=== PATIENT | male | born 1985 | race Caucasian/White ===

== ENCOUNTER → 2017-10-31 | Outpatient (CLI) | payer BC ==
--- NOTE | 2017-10-31 10:49 | RADIOLOGY REPORT (SQ) ---
EXAM DESCRIPTION: MRI LT LOWER JOINT WITHOUT COMPLETED DATE/TIME: 10/31/2017 9:11 am REASON FOR STUDY: UNSPEC INTERNAL DERANGEMENT OF LEFT KNEE M23.92 UNSPECIFIED INTERNAL DERANGEMENT OF LEFT KNEE COMPARISON: None. TECHNIQUE: Leftknee images acquired and stored on PACS. Multiplanar images include fat sensitive se quences as T1, water sensitive sequences as FST2 or STIR, cartilage sensitive sequences as FSPD, and gradient echo sequences. LIMITATIONS: None. FINDINGS: JOINT AND BURSAE: Joint effusion. BONE CORTEX AND MARROW: No alteration of signal to suggest marrow replacement. No worrisome bone lesi ons. No occult fracture. ACL: Intact. No degeneration or ganglion cyst. PCL: Intact. MCL: Intact. No periligamentous edema or fluid. LCL: Intact. No periligamentous edema or fluid. MEDIAL MENISCUS: Very attenuated with remaining normal meniscal tissue confined to the anterior horn. Several posterior horn fragments. LATERAL MENISCUS: No tears. No abnormal signal. MEDIAL COMPARTMENT: Cartilage thinning. No bone bruises or reactive marrow edema. No osteophytes. LATERAL COMPARTMENT: Cartilage preserved. No bone bruises or reactive marrow edema. No osteophytes. PATELLA: No chondromalacia. No subchondral cysts. Medial and lateral retinacula intact. EXTENSOR MECHANISM: Intact. Quadriceps and patella tendons normal. SOFT TISSUES: Gandara's cyst measuring about 4 cm in maximum craniocaudal diameter. Fluid extends into the superficial fascia. OTHER: No other significant finding. IMPRESSION: 1. Complex tear posterior horn medial meniscus extending into the body. Posterior horn is fragmented . 2. Ruptured Gandara's cyst. 3. Joint effusion. TECHNICAL DOCUMENTATION: JOB ID: [id number]- All Rights Reserved
== END ==
LOC: RAD 07:56
PROVIDERS: ATTEND Family Medicine
DX: M23.92 Unspecified internal derangement of left knee (principal); M66.0 Rupture of popliteal cyst

== ENCOUNTER 2017-12-07 07:23 | Day surgery (SDC) | payer BC ==
[2017-11-10 09:08] LABS: ABSOLUTE BASOPHILS # (AUTO) 0.1 10^3/uL (0.0-0.2); ABSOLUTE EOSINOPHILS # (AUTO) 0.1 10^3/uL (0.0-0.6); ABSOLUTE LYMPHOCYTES (AUTO) 3.8 10^3/uL (0.5-4.7); ABSOLUTE MONOCYTES (AUTO) 0.8 10^3/uL (0.1-1.4); ABSOLUTE NEUT (AUTO) 3.7 10^3/uL (1.7-8.2); BASOPHILS % (AUTO) 0.7 % (0-2); EOSINOPHILS % (AUTO) 1.4 % (0-6); HEMOGLOBIN 16.1 g/dL (13.5-17.0); LYMPHOCYTES % (AUTO) 44.7 % (13-45); MEAN CORPUSCULAR HEMOGLOBIN 30.5 pg (27.0-33.4); MEAN CORPUSCULAR HGB CONC 34.3 g/dL (32.0-36.0); MEAN CORPUSCULAR VOLUME 89 fl (80-97); PLATELET COUNT 296 10^3/uL (150-450); RED BLOOD COUNT 5.27 10^6/uL (4.35-5.55); RED CELL DISTRIBUTION WIDTH 12.8 % (11.5-14.0); SEGMENTED NEUTROPHILS % (AUTO) 44.2 % (42-78); TOTAL CELLS COUNTED % (AUTO) 100 %; WHITE BLOOD COUNT 8.4 10^3/uL (4.0-10.5)
[2017-11-10 09:32] LABS: ANION GAP 14 (5-19); BLOOD UREA NITROGEN 10 mg/dL (7-20); CARBON DIOXIDE 26 mmol/L (22-30); CHLORIDE 103 mmol/L (98-107); GLUCOSE 100 mg/dL (75-110); POTASSIUM 4.2 mmol/L (3.6-5.0); SODIUM 143.1 mmol/L (137-145)
--- NOTE | 2017-11-10 10:54 | RADIOLOGY REPORT (SQ) ---
EXAM DESCRIPTION: CHEST PA/LATERAL COMPLETED DATE/TIME: 11/10/2017 8:56 am REASON FOR STUDY: PRE-OP COMPARISON: None. EXAM PARAMETERS: NUMBER OF VIEWS: two views TECHNIQUE: Digital Frontal and Lateral radiographic views of the chest acquired. RADIATION DOSE: NA LIMITATIONS: none FINDINGS: LUNGS AND PLEURA: No opacities, masses or pneumothorax. No pleural effusion. MEDIASTINUM AND HILAR STRUCTURES: No masses or contour abnormalities. HEART AND VASCULAR STRUCTURES: Heart normal size. No evidence for failure. BONES: No acute findings. HARDWARE: None in the chest. OTHER: No other significant finding. IMPRESSION: NO SIGNIFICANT RADIOGRAPHIC FINDING IN THE CHEST. TECHNICAL DOCUMENTATION: JOB ID: [id number] [employer]- All Rights Reserved
--- NOTE | 2017-11-12 12:42 | EKG REPORT ---
SEVERITY:- NORMAL ECG - SINUS RHYTHM : Confirmed by: Taylor Everett MD 12-Nov-2017 12:40:38
[~2017-12-07 07:23] MED LIST: CEFAZOLIN 2 GM/D5W RTU 2 GM/50 ML RTUPB IV PRN
[2017-12-07] MEDS ORDERED: EPHEDRINE SULFATE INJ 50 MG/1 ML AMPULE ONE (08:33)
[2017-12-07] MEDS ORDERED: HYDROMORPHONE HCL INJ/PF 2 MG/ML AMPULE ONE (08:33)
[2017-12-07] MEDS ORDERED: MIDAZOLAM 2 MG/2 ML INJ ONE (08:33)
[2017-12-07] MEDS ORDERED: PROPOFOL INJ 200 MG/20 ML VIAL IV ONE (08:34)
[2017-12-07] MEDS ORDERED: ONDANSETRON HCL INJ/PF 4 MG/2 ML SDV ONE (08:34)
[2017-12-07] MEDS ORDERED: DIPHENHYDRAMINE HCL 50 MG/ML VIAL IV PRN (09:57)
[2017-12-07] MEDS ORDERED: MEPERIDINE HCL/PF INJ 25 MG/1 ML DISP.SYRIN IV PRN (09:57)
[2017-12-07] MEDS ORDERED: PROMETHAZINE HCL INJ 25 MG/1 ML VIAL IV PRN (09:57)
[2017-12-07] MEDS ORDERED: FENTANYL CITRATE INJ/PF 100 MCG/2 ML AMPUL IV PRN ×3 (09:57)
[2017-12-07] MEDS ORDERED: BUPIVACAINE HCL 0.5 % INJ/PF 30 ML SDV ONE (10:30)
[2017-12-07] MEDS ORDERED: LORAZEPAM INJ 2 MG/1 ML VIAL ONE (11:02)
--- NOTE | 2017-12-07 11:05 | PDOC DISCHARGE SUMMARY ---
Discharge Summary (SDC) - Discharge Final Diagnosis: Left knee bucket-handle medial meniscus tear Date of Surgery: 12/07/17 Discharge Date: 12/07/17 Condition: Good Treatment or Instructions: Patient instructed to follow up in 10-14 days. Patient instructed to keep dressing dry clean and intact for 4 days and then allowed to remove. At that point patient can shower and apply Band-Aids as needed. Patient can weight-bear as tolerated and do range of motion exercises as tolerated. Crutches for support and safety. Can wean crutches once stable on his feet. Patient instructed to call the office if patient develops fevers chills redness and drainage from the surgical sites. Prescriptions: Oxycodone HCl/Acetaminophen [Percocet 5-325 mg Tablet] 1 - 2 tab PO ASDIR PRN # 25 tablet PRN Reason: Referrals: DAY FENTON PA-C [Primary Care Provider] - Discharge Diet: As Tolerated Respiratory Treatments at Home: Deep Breathing/Coughing Discharge Activity: No Lifting/Push/Pulling, Slowly Increase Activity, Walk Frequently Home Care Assistance: None Needed Adaptive Devices on Discharge: Axillary Crutches Report the Following to Your Physician Immediately: Shortness of Breath, Vomiting, Fever over 101 Degrees, Unusual Bleeding, Redness, Swelling, Warmth, Increased Soreness, Drainage-Yellow, Drainage-Pate, Drainage-Green, Drainage- Foul Smelling
--- NOTE | 2017-12-07 11:10 | Operative Report ---
Operative Report DATE OF SURGERY: 12/07/17 PREOPERATIVE DIAGNOSIS: Bucket-handle medial meniscus tear of the left knee POSTOPERATIVE DIAGNOSIS: Same OPERATION: Left knee arthroscopy with partial medial meniscectomy SURGEON: AFSANEH CA ANESTHESIA: GA TISSUE REMOVED OR ALTERED: Medial meniscus COMPLICATIONS: None ESTIMATED BLOOD LOSS: Less than 10 mL INTRAOPERATIVE FINDINGS: As above PROCEDURE: Patient was brought to the operating room and induced and intubated in supine position. A tourniquet was applied to the left lower extremity. Timeout was done identifying the left knee was the correct site. .25% plain Marcaine was injected into anticipated portal sites. The extremity was elevated and the tourniquet was inflated at 300 mmHg. 11 blade was used to establish the anterolateral portal. Scope was introduced. At this point I established my anteromedial portal. Diagnostic scope was done showing the patient had pristine patellofemoral compartment with no evidence of chondromalacia. I turned my attention to the medial compartment where I noted a lift bucket- handle tear medial meniscus.I used the meniscal biter and 4.0mm shaver to to cut the anterior portion and the posterior portion being up the bucket-handle piece of the medial meniscus. Hemostat was used to pull out the fragment. Pictures were taken showing the fragment. Shaver smooth out the edges of the meniscus which gave a good stable construct. I this point redirected my camera to the notch and visualized the anterior cruciate ligament graft which was intact as well as the PCL which showed to be intact. I then placed the extremity in a [id number] and at this point saw the lateral meniscus was intact with no noticeable tears. Popliteal hiatus was intact. Articular cartilage also was pristine with no evidence of chondromalacia or wear. At this point the fluid of the knee was removed and I proceeded to close the 2 portal sites with 3-0 nylon. Tourniquet was let down. The portal sites were covered with Xeroform 4 x 4 dressing and ABD pad followed by a soft roll. I overwrapped it with an Facundo bandage. Drapes were cut and removed. Patient was successfully extubated and sent to PACU in stable condition.
[2017-12-07] MEDS ORDERED: KETOROLAC TROMETHAMINE INJ/PF 30 MG/1 ML SDV ONE (11:13)
[2017-12-07] MEDS ORDERED: ACETAMINOPHEN 100 ML IV ONE (11:13)
[2017-12-07] MEDS ORDERED: FENTANYL CITRATE INJ/PF 100 MCG/2 ML AMPUL ONE (11:20)
[2017-12-07] MEDS ORDERED: OXYCODONE-ACETAMINOPHEN 5-325 MG TABLET PO PRN ×2 (12:45)
[2017-12-07] MEDS ORDERED: OXYCODONE-ACETAMINOPHEN 5-325 MG TABLET ONE (12:48)
[2017-12-07 14:42] VITALS: BP 137/86
== END 2017-12-07 13:50 | disposition home or self-care (01) ==
LOC: OROUT 07:23
PROVIDERS: ATTEND Orthopaedic Surgery
PROC: 0SBD4ZZ Excision of Left Knee Joint, Percutaneous Endoscopic Approach (ICD-10-PCS; principal; 2017-12-07 09:30)
DX: S83.212D Bucket-handle tear of medial meniscus, current injury, left knee, subsequent encounter (principal); X58.XXXD Exposure to other specified factors, subsequent encounter; F17.210 Nicotine dependence, cigarettes, uncomplicated; K21.9 Gastro-esophageal reflux disease without esophagitis
CPT/HCPCS: 93005; 36415; 85025; 80048; 71020; 93010; 29881; J2250; J3490; J3010; J1885; J1170; J2060; J2405; J2704; J0690; J0131; 1400

== ENCOUNTER → 2018-03-21 | Outpatient (CLI) | payer BC ==
--- NOTE | 2018-03-21 10:55 | RADIOLOGY REPORT (SQ) ---
EXAM DESCRIPTION: MRI RT LOWER JOINT WITHOUT COMPLETED DATE/TIME: 03/21/2018 9:11 am REASON FOR STUDY: SPONTANEOUS RUPTURE OF OTHER TENDONS (M66.869) M66.869 SPONTANEOUS RUPTURE OF OTH ER TENDONS, UNSPECIFIED LO COMPARISON: None. TECHNIQUE: Right ankle images acquired and stored on PACS. Multiplanar images include fat sensitive sequences as T1, fluid sensitive sequences as FST2/STIR, cartilage sensitive sequences as FSPD, and g radient echo sequences. LIMITATIONS: None. FINDINGS: BONE MARROW: No alteration of signal to suggest marrow replacement or edema. No occult fra cture. No large osteophytes. EFFUSIONS: No subtalar or tibiotalar effusions. No loose bodies. OSSEOUS ARTICULATIONS: Normal tibiotalar, subtalar, talonavicular and calcaneocuboid joints. TALAR DOME AND TIBIAL PLAFOND: Normal cartilage. No osteochondral defect. ACHILLES TENDON: Complete rupture about 5 cm proximal to the insertion with a gap of 5-6 cm. TIBIALIS ANTERIOR TENDON: Intact without edema at the 1st MT attachment. TIBIALIS POSTERIOR TENDON: Small amount of tendon sheath fluid which can be a normal variant. FLEXOR HALLUCIS LONGUS AND FLEXOR DIGITORUM TENDONS: Normal morphology and no tendon sheath fluid. No edema of the os trigonum. PERONEUS LONGUS AND BREVIS TENDON: Normal morphology and no tendon sheath fluid. No subluxation. ATFL, CFL, PTFL: Intact. No thickening or signal alteration. No corin-ligamentous fluid. DELTOID LIGAMENT: Visualized components intact. TARSAL TUNNEL: No masses. No muscle atrophy. SINUS TARSI: No fluid. No reactive marrow edema or erosions. PLANTAR FASCIA: No signal alteration or tear. ADJACENT SOFT TISSUES: No masses. OTHER: No other significant finding. IMPRESSION: Complete rupture of the Achilles tendon with a gap of approximately 6 cm. TECHNICAL DOCUMENTATION: JOB ID: [id number] [employer]- All Rights Reserved Reading location - IP/workstation name: [email or web address]
== END ==
LOC: RAD 08:27
PROVIDERS: ATTEND Orthopaedic Surgery
DX: M66.869 Spontaneous rupture of other tendons, unspecified lower leg (principal)

== ENCOUNTER → 2018-03-29 | Outpatient (CLI) | payer BC ==
[2018-03-29 11:56] LABS: HEMATOCRIT 45.7 % (37.9-51.0); HEMOGLOBIN 15.7 g/dL (13.5-17.0); MEAN CORPUSCULAR HEMOGLOBIN 30.9 pg (27.0-33.4); MEAN CORPUSCULAR HGB CONC 34.5 g/dL (32.0-36.0); MEAN CORPUSCULAR VOLUME 90 fl (80-97); PLATELET COUNT 247 10^3/uL (150-450); RED BLOOD COUNT 5.08 10^6/uL (4.35-5.55); RED CELL DISTRIBUTION WIDTH 12.7 % (11.5-14.0); WHITE BLOOD COUNT 5.9 10^3/uL (4.0-10.5)
[2018-03-29 12:18] LABS: ANION GAP 12 (5-19); BLOOD UREA NITROGEN 16 mg/dL (7-20); CALCIUM 10.1 mg/dL (8.4-10.2); CARBON DIOXIDE 27 mmol/L (22-30); CHLORIDE 104 mmol/L (98-107); GLUCOSE 108 mg/dL (75-110); POTASSIUM 4.1 mmol/L (3.6-5.0); SODIUM 142.8 mmol/L (137-145)
--- NOTE | 2018-03-29 19:27 | EKG REPORT ---
SEVERITY:- NORMAL ECG - SINUS RHYTHM : Confirmed by: Jared Arguello 29-Mar-2018 19:26:32
== END ==
LOC: OD 10:59
PROVIDERS: ATTEND Orthopaedic Surgery
DX: Z01.810 Encounter for preprocedural cardiovascular examination (principal); Z01.812 Encounter for preprocedural laboratory examination; Z01.89 Encounter for other specified special examinations
CPT/HCPCS: 36415; 80048; 85027; 93005; 93010

== ENCOUNTER 2018-12-03 10:17 | Emergency (ER) | payer BC ==
[2018-12-03] MEDS ORDERED: NORMAL SALINE 1000 ML 1,000 ML IV ONE (10:35)
[2018-12-03] MEDS ORDERED: HALOPERIDOL LACTATE INJ 5 MG/1 ML VIAL IV ONE (10:36)
[2018-12-03] MEDS ORDERED: DIPHENHYDRAMINE HCL 50 MG/ML VIAL IV ONE (10:36)
--- NOTE | 2018-12-03 10:38 | ER Document Report ---
ED Medical Screen (RME) - General Chief Complaint: Vomiting Stated Complaint: DEHYDRATION Time Seen by Provider: 12/03/18 10:29 Primary Care Provider: AFSANEH JEFFERY MD [Primary Care Provider] - Follow up as needed Mode of Arrival: Ambulatory Information source: Patient Notes: This is a 33-year-old man with a history of anxiety, migraine headaches, severe episodes of vomiting. Patient states he started getting nauseated while eating [employer] on Monday and started vomiting shortly thereafter. He did go to the ER in [place] and was treated with IV fluids, antiemetics and released. He presents with continued symptoms. Patient is also concerned that he might have a bite to the dorsal aspect of the left hand over the fifth metacarpal. He does have mild erythema with a central scab. There is no fluctuance or drainage. There is minimal surrounding erythema. TRAVEL OUTSIDE OF THE [place] IN LAST 30 DAYS: No - Related Data Allergies/Adverse Reactions: No Known Allergies Allergy (Verified 12/03/18 10:20) Past Medical History - Social History Chew tobacco use (# tins/day): No Frequency of alcohol use: None Drug Abuse: None - Past Medical History Cardiac Medical History: Denies: Hx Coronary Artery Disease, Hx Heart Attack, Hx Hypertension Pulmonary Medical History: Denies: Hx Asthma, Hx Bronchitis, Hx COPD, Hx Pneumonia Neurological Medical History: Denies: Hx Cerebrovascular Accident, Hx Seizures Renal/ Medical History: Denies: Hx Peritoneal Dialysis Musculoskeltal Medical History: Denies Hx Arthritis Past Surgical History: Reports: Hx Cholecystectomy, Hx Orthopedic Surgery - meniscus to the left knee, right achilles - Immunizations Hx Diphtheria, Pertussis, Tetanus Vaccination: Yes History of Influenza Vaccine for 08/2017 - 01/2018 Season: No Physical Exam - Vital signs Vitals: Temp Pulse Resp BP Pulse Ox 98.8 F 91 14 125/81 98 12/03/18 10:12/03/18 10:12/03/18 10:12/03/18 10:12/03/18 10:26 Course - Vital Signs Vital signs: Temp Pulse Resp BP Pulse Ox 98.8 F 91 14 125/81 98 12/03/18 10:12/03/18 10:12/03/18 10:12/03/18 10:12/03/18 10:26 Doctor's Discharge - Discharge Referrals: AFSANEH JEFFERY MD [Primary Care Provider] - Follow up as needed
[2018-12-03 10:43] LABS: ABSOLUTE LYMPHOCYTES (AUTO) 2.5 10^3/uL (0.5-4.7); ABSOLUTE MONOCYTES (AUTO) 0.6 10^3/uL (0.1-1.4); ABSOLUTE NEUT (AUTO) 6.4 10^3/uL (1.7-8.2); BASOPHILS % (AUTO) 0.4 % (0-2); EOSINOPHILS % (AUTO) 0.1 % (0-6); HEMATOCRIT 48.3 % (37.9-51.0); HEMOGLOBIN 16.9 g/dL (13.5-17.0); LYMPHOCYTES % (AUTO) 25.9 % (13-45); MEAN CORPUSCULAR HEMOGLOBIN 30.8 pg (27.0-33.4); MEAN CORPUSCULAR HGB CONC 34.9 g/dL (32.0-36.0); MEAN CORPUSCULAR VOLUME 88 fl (80-97); MONOCYTES % (AUTO) 6.4 % (3-13); PLATELET COUNT 307 10^3/uL (150-450); RED BLOOD COUNT 5.48 10^6/uL (4.35-5.55); RED CELL DISTRIBUTION WIDTH 12.6 % (11.5-14.0); SEGMENTED NEUTROPHILS % (AUTO) 67.2 % (42-78); TOTAL CELLS COUNTED % (AUTO) 100 %; WHITE BLOOD COUNT 9.6 10^3/uL (4.0-10.5)
[2018-12-03 11:02] LABS: ALANINE AMINOTRANSFERASE 159 U/L (21-72); ALBUMIN 5.6 g/dL (3.5-5.0); ALKALINE PHOSPHATASE 88 U/L (38-126); ANION GAP 19 (5-19); ASPARTATE AMINO TRANSFERASE 109 U/L (17-59); BILIRUBIN,DIRECT 0.6 mg/dL (0.0-0.4); BLOOD UREA NITROGEN 13 mg/dL (7-20); CALCIUM 10.7 mg/dL (8.4-10.2); CARBON DIOXIDE 34 mmol/L (22-30); CHLORIDE 86 mmol/L (98-107); GLUCOSE 159 mg/dL (75-110); LIPASE 183.9 U/L (23-300); POTASSIUM 3.6 mmol/L (3.6-5.0); SODIUM 138.5 mmol/L (137-145); TOTAL PROTEIN 8.7 g/dL (6.3-8.2)
--- NOTE | 2018-12-03 12:55 | ER Document Report ---
ED General - General Chief Complaint: Vomiting Stated Complaint: DEHYDRATION Time Seen by Provider: 12/03/18 10:29 Primary Care Provider: AFSANEH JEFFERY MD [Primary Care Provider] - Follow up as needed Mode of Arrival: Ambulatory Information source: Patient Notes: 33-year-old male presents emergency department for complaints of dehydration, nausea, vomiting. Patient states that he has had nausea and vomiting for the last 3 days. Patient states that it started after eating at [facility]. He went to the emergency department at [facility] and was treated with IV fluids, antiemetics and was discharged home. Patient states that he is continuing to have symptoms. He did not feel the antiemetics that he was prescribed. Patient states that initially he was having left lower quadrant pain but this pain has completely resolved. He denies any fever, chills, dysuria, hematuria, hematemesis, hematochezia, melena, penile discharge, testicular pain. TRAVEL OUTSIDE OF THE [place] IN LAST 30 DAYS: No - HPI Onset: Other - 3 days Onset/Duration: Sudden Quality of pain: Achy Severity: None Pain Level: Denies Associated symptoms: Nausea, Vomiting Exacerbated by: Denies Relieved by: Denies Similar symptoms previously: Yes Recently seen / treated by doctor: Yes - Related Data Allergies/Adverse Reactions: No Known Allergies Allergy (Verified 12/03/18 10:20) Past Medical History - General Information source: Patient - Social History Smoking Status: Current Every Day Smoker Chew tobacco use (# tins/day): No Frequency of alcohol use: None Drug Abuse: None Family History: Reviewed & Not Pertinent Patient has suicidal ideation: No Patient has homicidal ideation: No - Past Medical History Cardiac Medical History: Denies: Hx Coronary Artery Disease, Hx Heart Attack, Hx Hypertension Pulmonary Medical History: Denies: Hx Asthma, Hx Bronchitis, Hx COPD, Hx Pneumonia Neurological Medical History: Denies: Hx Cerebrovascular Accident, Hx Seizures Renal/ Medical History: Denies: Hx Peritoneal Dialysis Musculoskeletal Medical History: Denies Hx Arthritis Past Surgical History: Reports: Hx Cholecystectomy, Hx Orthopedic Surgery - meniscus to the left knee, right achilles - Immunizations Hx Diphtheria, Pertussis, Tetanus Vaccination: Yes Review of Systems - Review of Systems Constitutional: No symptoms reported EENT: No symptoms reported Cardiovascular: No symptoms reported Respiratory: No symptoms reported Gastrointestinal: Abdominal pain, Nausea, Vomiting Genitourinary: No symptoms reported Male Genitourinary: No symptoms reported Musculoskeletal: No symptoms reported Skin: No symptoms reported Hematologic/Lymphatic: No symptoms reported Neurological/Psychological: No symptoms reported -: Yes All other systems reviewed and negative Physical Exam - Vital signs Vitals: Temp Pulse Resp BP Pulse Ox 98.8 F 91 14 125/81 98 12/03/18 10:26 12/03/18 10:12/03/18 10:12/03/18 10:12/03/18 10:26 - Notes Notes: PHYSICAL EXAMINATION: GENERAL: Well-appearing, well-nourished and in no acute distress. HEAD: Atraumatic, normocephalic. EYES: Pupils equal round and reactive to light, extraocular movements intact, sclera anicteric, conjunctiva are normal. ENT: Nares patent, oropharynx clear without exudates. Moist mucous membranes. NECK: Normal range of motion, supple without lymphadenopathy LUNGS: Breath sounds clear to auscultation bilaterally and equal. No wheezes rales or rhonchi. HEART: Regular rate and rhythm without murmurs ABDOMEN: Soft, nontender, nondistended abdomen. No guarding, no rebound. No masses appreciated. Musculoskeletal: Normal range of motion, no pitting or edema. No cyanosis. NEUROLOGICAL: Cranial nerves grossly intact. Normal speech, normal gait. Normal sensory, motor exams PSYCH: Normal mood, normal affect. SKIN: Warm, Dry, normal turgor, no rashes or lesions noted. Course - Re-evaluation Re-evalutation: 12/03/18 12:53 On evaluation, patient denies any abdominal pain. He was given IV fluids, Haldol, Benadryl by the triage physician. Patient states that his symptoms have improved and he is ready for discharge home. Lbs remarkable for elevated liver enzymes. Patient says he had his gallbladder removed years ago. Denies any RUQ or RLQ pain. Denies ETOH. I instructed the patient to take the medication prescribed as directed, to follow-up with his primary care physician this week, and to return to the emergency department for any worsening symptoms. Patient is agreeable with plan of care. 12/03/18 12:55 - Vital Signs Vital signs: Temp Pulse Resp BP Pulse Ox 98.8 F 91 14 125/81 98 12/03/18 10:12/03/18 10:26 12/03/18 10:26 12/03/18 10:26 12/03/18 10:26 - Laboratory Result Diagrams: 12/03/18 09:55 12/03/18 09:55 Laboratory results interpreted by me: 12/03/18 09:55 Chloride 86 L Carbon Dioxide 34 H Glucose 159 H Calcium 10.7 H Total Bilirubin 3.0 H Direct Bilirubin 0.6 H AST 109 H ALT 159 H Total Protein 8.7 H Albumin 5.6 H Discharge - Discharge Clinical Impression: Nausea & vomiting Qualifiers: Vomiting type: unspecified Vomiting Intractability: non-intractable Qualified Code(s): R11.2 - Nausea with vomiting, unspecified Condition: Good Disposition: HOME, SELF-CARE Instructions: Vomiting ([facility]) Additional Instructions: Take the medication prescribed to you by the emergency department at [facility] as directed, follow-up with your primary care physician this week, return to emergency department for any worsening symptoms. Referrals: AFSANEH JEFFERY MD [Primary Care Provider] - Follow up as needed
[2018-12-03 13:18] VITALS: BP 136/92
== END 2018-12-03 13:18 | disposition home or self-care (01) ==
LOC: ER 10:17
DX: R11.2 Nausea with vomiting, unspecified (principal); R10.32 Left lower quadrant pain
CPT/HCPCS: 99284; 96361; 96374; 96375; 36415; 83690; 85025; 80053; J1200; J1630; J7030

== ENCOUNTER 2019-06-20 04:43 | Emergency (ER) | payer BC ==
[2019-06-20] MEDS ORDERED: NORMAL SALINE 1000 ML 1,000 ML IV ONE ×3 (04:56→12:04)
[2019-06-20] MEDS ORDERED: CLONIDINE HCL 0.1 MG TABLET PO ONE (04:56)
[2019-06-20] MEDS ORDERED: ONDANSETRON HCL INJ/PF 4 MG/2 ML SDV IV ONE (04:56)
[2019-06-20 05:13] LABS: ABSOLUTE LYMPHOCYTES (AUTO) 2.6 10^3/uL (0.5-4.7); ABSOLUTE MONOCYTES (AUTO) 1.1 10^3/uL (0.1-1.4); ABSOLUTE NEUT (AUTO) 10.2 10^3/uL (1.7-8.2); BASOPHILS % (AUTO) 0.3 % (0-2); HEMATOCRIT 47.8 % (37.9-51.0); HEMOGLOBIN 16.5 g/dL (13.5-17.0); LYMPHOCYTES % (AUTO) 18.3 % (13-45); MEAN CORPUSCULAR HEMOGLOBIN 30.5 pg (27.0-33.4); MEAN CORPUSCULAR HGB CONC 34.5 g/dL (32.0-36.0); MEAN CORPUSCULAR VOLUME 88 fl (80-97); MONOCYTES % (AUTO) 8.1 % (3-13); PLATELET COUNT 270 10^3/uL (150-450); RED BLOOD COUNT 5.41 10^6/uL (4.35-5.55); RED CELL DISTRIBUTION WIDTH 12.7 % (11.5-14.0); SEGMENTED NEUTROPHILS % (AUTO) 73.3 % (42-78); TOTAL CELLS COUNTED % (AUTO) 100 %
[2019-06-20 05:31] LABS: ALBUMIN 5.1 g/dL (3.5-5.0); ALKALINE PHOSPHATASE 69 U/L (38-126); ANION GAP 15 (5-19); ASPARTATE AMINO TRANSFERASE 138 U/L (17-59); BILIRUBIN,DIRECT 0.2 mg/dL (0.0-0.4); BILIRUBIN,TOTAL 2.7 mg/dL (0.2-1.3); BLOOD UREA NITROGEN 15 mg/dL (7-20); CARBON DIOXIDE 33 mmol/L (22-30); CHLORIDE 89 mmol/L (98-107); GLUCOSE 139 mg/dL (75-110); TOTAL PROTEIN 7.9 g/dL (6.3-8.2)
[2019-06-20 05:32] LABS: ACETAMINOPHEN < 10 ug/mL (10-30); ALCOHOL < 10 mg/dL (NONE DETECTED); SALICYLATE < 1.0 mg/dL (2.0-20.0)
[2019-06-20 05:40] LABS: CREATINE KINASE 2619 U/L (55-170)
[2019-06-20 05:41] LABS: POTASSIUM 2.8 mmol/L (3.6-5.0)
[2019-06-20] MEDS ORDERED: POTASSIUM CHLORIDE 20 MEQ PACKET PO ONE (05:43)
[2019-06-20] MEDS: RINGERS SOLUTION,LACTATED 1,000 ML IV PRN ×2 (06:08→06:46)
[2019-06-20 06:24] LABS: APPEARANCE,URINE CLEAR; BILIRUBIN,URINE NEGATIVE (NEGATIVE); COLOR,URINE STRAW; GLUCOSE, URINE NEGATIVE (NEGATIVE); KETONES,URINE NEGATIVE (NEGATIVE); LEUKOCYTE ESTERASE,URINE NEGATIVE (NEGATIVE); NITRITE,URINE NEGATIVE (NEGATIVE); PROTEIN,URINE NEGATIVE (NEGATIVE); URINE SPECIFIC GRAVITY 1.003; UROBILINOGEN,URINE NEGATIVE mg/dL (<2.0)
[2019-06-20 06:38] LABS: URINE AMPHETAMINES SCREEN NEGATIVE; URINE BARBITURATES SCREEN NEGATIVE; URINE BENZODIAZEPINES SCREEN NEGATIVE; URINE COCAINE SCREEN NEGATIVE; URINE MARIJUANA (THC) SCREEN UNCONFIRMED POSITIVE; URINE METHADONE SCREEN NEGATIVE; URINE PHENCYCLIDINE SCREEN NEGATIVE
--- NOTE | 2019-06-20 07:00 | ER Document Report ---
Addendum entered and electronically signed by ARGENIS KAISER NP 06/20/19 15:54: Course - Re-evaluation Re-evalutation: 06/20/19 13:52 Dr. Church is near the end of his shift and request that care be transferred to this provider to follow his trending repeat CK test results. Dr. Church states that patient has already been evaluated by the mental health team and will receive a prescription for BuSpar 5 mg daily, also states that patient can receive an additional 40 mEq of p.o. potassium prior to discharge. States that if repeat CK continues to increase or be elevated recommends consultation with hospitalist for admission. If CK is downtrending, patient may be discharged. 06/20/19 15:54 Patient updated regarding repeat laboratory test results. Patient encouraged to increase oral potassium at home. Patient is anxious pacing at bedside requesting to be discharged. Family member at bedside there with patient. Patient verbalized understanding of discharge and plan of care with instructions to return in 24 hours for repeat examination. - Vital Signs Vital signs: Temp Pulse Resp BP Pulse Ox 98.5 F 100 22 H 135/86 H 100 06/20/19 04:46 06/20/19 04:46 06/20/19 07:01 06/20/19 07:01 06/20/19 07:01 - Laboratory Result Diagrams: 06/20/19 05:00 06/20/19 05:00 Laboratory results interpreted by me: 06/20/19 06/20/19 06/20/19 05:00 05:00 10:30 WBC 14.0 H Absolute Neutrophils 10.2 H Sodium 136.5 L Potassium 2.8 L* Chloride 89 L Carbon Dioxide 33 H Glucose 139 H Total Bilirubin 2.7 H AST 138 H Creatine Kinase 2619 H 2855 H Albumin 5.1 H Salicylates < 1.0 L Acetaminophen < 10 L Addendum entered and electronically signed by ARGENIS KAISER NP 06/20/19 15:47: Discharge - Discharge Clinical Impression: Opiate withdrawal, Multiple substance abuse, Hypokalemia Nausea and vomiting Qualifiers: Vomiting type: unspecified Vomiting Intractability: non-intractable Qualified Code(s): R11.2 - Nausea with vomiting, unspecified Rhabdomyolysis Qualifiers: Rhabdomyolysis type: non-traumatic Qualified Code(s): M62.82 - Rhabdomyolysis Cyclic vomiting syndrome Qualifiers: Vomiting Intractability: non-intractable Nausea presence: with nausea Qualified Code(s): G43.A0 - Cyclical vomiting, not intractable Disposition: PSYCH HOSP/UNIT Additional Instructions: You have elevated creatinine phosphokinase. This is due to muscle breakdown. You need to drink lots of fluids. You need to have your creatinine phosphokinase rechecked as soon as possible. Please return here within the next 24 hours to have a repeat creatinine phosphokinase. You can have permanent kidney damage or kidney failure if you do not have the elevated creatinine phosphokinase treated. Prescriptions: Buspirone HCl [Buspar 5 mg Tablet] 1 tab PO DAILY #15 tab Referrals: AFSANEH JEFFERY MD [ACTIVE STAFF] - Follow up as needed Scribe Attestation: 06/20/19 05:19 I personally performed the services described in the documentation, reviewed and edited the documentation which was dictated to the scribe in my presence, and it accurately records my words and actions. Addendum entered and electronically signed by KELLY CHURCH MD 06/20/19 14:35: Discharge - Discharge Clinical Impression: Opiate withdrawal, Multiple substance abuse, Hypokalemia Nausea and vomiting Qualifiers: Vomiting type: unspecified Vomiting Intractability: non-intractable Qualified Code(s): R11.2 - Nausea with vomiting, unspecified Rhabdomyolysis Qualifiers: Rhabdomyolysis type: non-traumatic Qualified Code(s): M62.82 - Rhabdomyolysis Cyclic vomiting syndrome Qualifiers: Vomiting Intractability: non-intractable Nausea presence: with nausea Qualified Code(s): G43.A0 - Cyclical vomiting, not intractable Disposition: PSYCH HOSP/UNIT Additional Instructions: You have elevated creatinine phosphokinase. This is due to muscle breakdown. You need to drink lots of fluids. You need to have your creatinine phosphokinase rechecked as soon as possible. Please return here within the next 24 hours to have a repeat creatinine phosphokinase. You can have permanent kidney damage or kidney failure if you do not have the elevated creatinine phosphokinase treated. Prescriptions: Buspirone HCl [Buspar 5 mg Tablet] 1 tab PO DAILY #15 tab Referrals: AFSANEH JEFFERY MD [ACTIVE STAFF] - Follow up as needed Scribe Attestation: 06/20/19 05:19 I personally performed the services described in the documentation, reviewed and edited the documentation which was dictated to the scribe in my presence, and it accurately records my words and actions. Addendum entered and electronically signed by KELLY CHURCH MD 06/20/19 08:32: Course - Re-evaluation Re-evalutation: 06/20/19 08:31 Patient was about the sign AMA when psychiatry arrived. Psychiatry did go speak with the patient. At this time patient is decided not to leave AMA. He states he will remain here as a patient and receive IV fluids. In addition patient will have a psychiatry consult and possible placement will be pursued. - Vital Signs Vital signs: Temp Pulse Resp BP Pulse Ox 98.5 F 100 22 H 135/86 H 100 06/20/19 04:46 06/20/19 04:46 06/20/19 07:01 06/20/19 07:01 06/20/19 07:01 - Laboratory Result Diagrams: 06/20/19 05:00 06/20/19 05:00 Laboratory results interpreted by me: 06/20/19 06/20/19 05:00 05:00 WBC 14.0 H Absolute Neutrophils 10.2 H Sodium 136.5 L Potassium 2.8 L* Chloride 89 L Carbon Dioxide 33 H Glucose 139 H Total Bilirubin 2.7 H AST 138 H Creatine Kinase 2619 H Albumin 5.1 H Salicylates < 1.0 L Acetaminophen < 10 L Addendum entered and electronically signed by KELLY CHURCH MD 06/20/19 08:31: Discharge - Discharge Clinical Impression: Opiate withdrawal, Multiple substance abuse, Hypokalemia Nausea and vomiting Qualifiers: Vomiting type: unspecified Vomiting Intractability: non-intractable Qualified Code(s): R11.2 - Nausea with vomiting, unspecified Rhabdomyolysis Qualifiers: Rhabdomyolysis type: non-traumatic Qualified Code(s): M62.82 - Rhabdomyolysis Cyclic vomiting syndrome Qualifiers: Vomiting Intractability: non-intractable Nausea presence: with nausea Qualified Code(s): G43.A0 - Cyclical vomiting, not intractable Disposition: PSYCH HOSP/UNIT Additional Instructions: You have elevated creatinine phosphokinase. This is due to muscle breakdown. You need to drink lots of fluids. You need to have your creatinine phosphokinase rechecked as soon as possible. Please return here within the next 24 hours to have a repeat creatinine phosphokinase. You can have permanent kidney damage or kidney failure if you do not have the elevated creatinine phosphokinase treated. Referrals: AFSANEH JEFFERY MD [ACTIVE STAFF] - Follow up as needed Scribe Attestation: 06/20/19 05:19 I personally performed the services described in the documentation, reviewed and edited the documentation which was dictated to the scribe in my presence, and it accurately records my words and actions. Addendum entered and electronically signed by KELLY CHURCH MD 06/20/19 08:16: Discharge - Discharge Clinical Impression: Opiate withdrawal, Multiple substance abuse, Hypokalemia Nausea and vomiting Qualifiers: Vomiting type: unspecified Vomiting Intractability: non-intractable Qualified Code(s): R11.2 - Nausea with vomiting, unspecified Rhabdomyolysis Qualifiers: Rhabdomyolysis type: non-traumatic Qualified Code(s): M62.82 - Rhabdomyolysis Cyclic vomiting syndrome Qualifiers: Vomiting Intractability: non-intractable Nausea presence: with nausea Qualified Code(s): G43.A0 - Cyclical vomiting, not intractable Condition: Stable Disposition: AGAINST MEDICAL ADVICE Additional Instructions: You have elevated creatinine phosphokinase. This is due to muscle breakdown. You need to drink lots of fluids. You need to have your creatinine phosphokinase rechecked as soon as possible. Please return here within the next 24 hours to have a repeat creatinine phosphokinase. You can have permanent kidney damage or kidney failure if you do not have the elevated creatinine phos phokinase treated. Referrals: AFSANEH JEFFERY MD [ACTIVE STAFF] - Follow up as needed Scribe Attestation: 06/20/19 05:19 I personally performed the services described in the documentation, reviewed and edited the documentation which was dictated to the scribe in my presence, and it accurately records my words and actions. Addendum entered and electronically signed by KELLY CHURCH MD 06/20/19 08:13: Course - Re-evaluation Re-evalutation: 06/20/19 08:10 I reevaluated the patient just now. He was asking to leave. Patient states he is not homicidal or suicidal. He states he does not want to stay and talk to psychiatry. He states that he does not wish to get treatment for his narcotic addiction at this time. Patient denies any problems with hearing voices or visual hallucinations. Patient does not appear to be responding to internal stimuli. He does not appear depressed. He states that he was to go home and see his and son. Patient was also educated about his rhabdomyolysis. I informed him that I felt it was not elevated to a degree with that I felt was immediately dangerous but that it was impossible to tell without repeating the laboratory to see if it was going up or down. He states that he does not want to wait for this test. He states he understands he could have kidney failure if he does not have the repeat laboratories. He understands that he needs to drink lots of fluid. Patient is of sound mind and is able to make his own judgments and decisions. I informed patient that he needs to have his creatinine phosphokinase rechecked as soon as possible and he stated he would do so. Patient understands the risks of permanent kidney damage by leaving. Patient will be leaving AGAINST MEDICAL ADVICE. - Vital Signs Vital signs: Temp Pulse Resp BP Pulse Ox 98.5 F 100 22 H 135/86 H 100 06/20/19 04:46 06/20/19 04:46 06/20/19 07:01 06/20/19 07:01 06/20/19 07:01 - Laboratory Result Diagrams: 06/20/19 05:00 06/20/19 05:00 Laboratory results interpreted by me: 06/20/19 06/20/19 05:00 05:00 WBC 14.0 H Absolute Neutrophils 10.2 H Sodium 136.5 L Potassium 2.8 L* Chloride 89 L Carbon Dioxide 33 H Glucose 139 H Total Bilirubin 2.7 H AST 138 H Creatine Kinase 2619 H Albumin 5.1 H Salicylates < 1.0 L Acetaminophen < 10 L Original Note: Entered by PAULINE CARTAGENA SCRIBE 06/20/19 0456 Acting as scribe for:KRISTA CAVANAUGH MD ED General - General Chief Complaint: Drug Abuse Stated Complaint: WITHDRAWAL Time Seen by Provider: 06/20/19 04:50 Primary Care Provider: AFSANEH JEFFERY MD [ACTIVE STAFF] - Follow up as needed Mode of Arrival: Ambulatory Information source: Patient, [facility] Records Notes: This 33-year-old male patient comes emergency room complaining of 4 days history of nausea and vomiting due to narcotic withdrawal. He states he got addicted to narcotics over the last few years following Achilles tendon surgery and meniscus surgery. He states he has not been obtaining prescriptions for the medications for at least the past 6 to 7 months, so has been buying them on the street. States he normally takes 2-3 Percocets per day, when he does not have that he takes tramadol. He states that he has been smoking pot recently and thinks that is making him feel worse. At this time he is interested in entering a detox program. Reviewing the records shows the patient has been here in the past with what appeared to be cyclic vomiting syndrome from marijuana abuse. He was seen in the emergency room on 09/16/2017, and then admitted on 09/18/2017 for abdominal pain, marijuana abuse, and uncontrolled nausea vomiting. TRAVEL OUTSIDE OF THE [place] IN LAST 30 DAYS: No - Related Data Allergies/Adverse Reactions: No Known Allergies Allergy (Verified 12/03/18 10:20) Past Medical History - General Information source: Patient, [facility] Records - Social History Smoking Status: Current Every Day Smoker Cigarette use (# per day): Yes - 1 PPD Chew tobacco use (# tins/day): No Smoking Education Provided: No Frequency of alcohol use: None Drug Abuse: Marijuana, Prescription drugs - Percocet and tramadol Occupation: [employer] Lives with: Friend Family History: Reviewed & Not Pertinent - Past Medical History Cardiac Medical History: Reports: Hx Hypertension - Blood pressures been elevated on previous emergency room visits. Pulmonary Medical History: Reports: None Neurological Medical History: Reports: None Endocrine Medical History: Reports: None Renal/ Medical History: Reports: None GI Medical History: Reports: Other - Cyclic vomiting Musculoskeletal Medical History: Reports Other - Chronic low back pain Psychiatric Medical History: Reports: Hx Anxiety Past Surgical History: Reports: Hx Cholecystectomy, Hx Orthopedic Surgery - L knee medial meniscus surgery 12/07/17, right achilles rupture in March 2018 - Immunizations Hx Diphtheria, Pertussis, Tetanus Vaccination: Yes Review of Systems - Review of Systems Constitutional: See HPI EENT: No symptoms reported Cardiovascular: No symptoms reported Respiratory: No symptoms reported Gastrointestinal: See HPI, Nausea, Vomiting Genitourinary: No symptoms reported Musculoskeletal: Back pain - Chronic low back pain Skin: No symptoms reported Hematologic/Lymphatic: No symptoms reported Neurological/Psychological: Depression, Anxiety Physical Exam - Vital signs Vitals: Temp Pulse Resp BP Pulse Ox 98.5 F 100 20 152/108 H 98 06/20/19 04:46 06/20/19 04:46 06/20/19 04:46 06/20/19 04:46 06/20/19 04:46 Interpretation: Hypertensive - General General appearance: Alert, Anxious In distress: None - HEENT Head: Normocephalic, Atraumatic Eyes: Normal Pupils: PERRL - Respiratory Respiratory status: No respiratory distress Breath sounds: Normal - Cardiovascular Rhythm: Regular Heart sounds: Normal auscultation Murmur: No - Abdominal Inspection: Normal Bowel sounds: Normal Tenderness: Nontender - Back Back: Normal - Extremities General upper extremity: Normal inspection General lower extremity: Normal inspection - Grossly normal inspection - Neurological Neuro grossly intact: Yes - Psychological Associated symptoms: Anxious - Skin Skin Temperature: Warm Skin Moisture: Dry Skin Color: Normal Course - Re-evaluation Re-evalutation: 06/20/19 05:12 While the patient was standing next to the bed with the monitor leads connected, he started to stagger and looked nauseous and acted like he was going to pass out. He seemed not to be completely aware of his surroundings. No seizure activity was noted. He did not get tachycardic during this time. His blood pressure remained elevated. He was encouraged to lay down and after laying on the stretcher at about 45 degree angle, he appeared to feel better. - Vital Signs Vital signs: Temp Pulse Resp BP Pulse Ox 98.5 F 100 28 H 135/100 H 94 06/20/19 04:46 06/20/19 04:46 06/20/19 05:01 06/20/19 05:01 06/20/19 05:14 - Laboratory Result Diagrams: 06/20/19 05:00 06/20/19 05:00 Laboratory results interpreted by me: 06/20/19 06/20/19 05:00 05:00 WBC 14.0 H Absolute Neutrophils 10.2 H Sodium 136.5 L Potassium 2.8 L* Chloride 89 L Carbon Dioxide 33 H Glucose 139 H Total Bilirubin 2.7 H AST 138 H Creatine Kinase 2619 H Albumin 5.1 H Salicylates < 1.0 L Acetaminophen < 10 L - EKG Interpretation by Me EKG shows normal: Sinus rhythm, [place], Intervals, QRS Complexes, ST-T Waves Rate: Normal - 67 Rhythm: NSR - Transfer of Care Care transferred to following provider: Dr. Church Critical Care Note - Critical Care Note Total time excluding time spent on procedures (mins): 35 Discharge - Discharge Clinical Impression: Opiate withdrawal, Multiple substance abuse, Hypokalemia Nausea and vomiting Qualifiers: Vomiting type: unspecified Vomiting Intractability: non-intractable Qualified Code(s): R11.2 - Nausea with vomiting, unspecified Rhabdomyolysis Qualifiers: Rhabdomyolysis type: non-traumatic Qualified Code(s): M62.82 - Rhabdomyolysis Cyclic vomiting syndrome Qualifiers: Vomiting Intractability: non-intractable Nausea presence: with nausea Qualified Code(s): G43.A0 - Cyclical vomiting, not intractable Condition: Stable Disposition: PSYCH HOSP/UNIT Referrals: AFSANEH JEFFERY MD [ACTIVE STAFF] - Follow up as needed Scribe Attestation: 06/20/19 05:19 I personally performed the services described in the documentation, reviewed and edited the documentation which was dictated to the scribe in my presence, and it accurately records my words and actions. I personally performed the services described in the documentation, reviewed and edited the documentation which was dictated to the scribe in my presence, and it accurately records my words and actions.
--- NOTE | 2019-06-20 08:02 | EKG REPORT ---
SEVERITY:- NORMAL ECG - SINUS RHYTHM : Confirmed by: Isma Aquino MD 20-Jun-2019 08:02:11
[2019-06-20] MEDS ORDERED: LORAZEPAM 0.5 MG TABLET PO ONE ×2 (09:29→12:10)
--- NOTE | 2019-06-20 12:05 | PSYCHOLOGICAL NOTE ---
<BEAU KLEIN - Last Filed: 06/20/19 10:46> Psych Note - Psych Note Date seen by psych provider: 06/20/19 Time seen by psych provider: 08:10 Psych Note: Reason for Consult: Detox This 33-year-old male patient comes emergency room complaining of 4 days history of nausea and vomiting due to narcotic withdrawal. Patient reports he has <KELLY LO - Last Filed: 06/20/19 12:05> Course - Re-evaluation Re-evalutation: 06/20/19 12:04 I reevaluated patient just now. He is sitting comfortably in the room talking with his mother. He agrees to stay and receive more fluids and have a CPK rechecked. He also would like to speak to psychiatry again. Psychiatry is been requested to return and speak with the patient. - Vital Signs Vital signs: Temp Pulse Resp BP Pulse Ox 98.5 F 100 22 H 135/86 H 100 06/20/19 04:46 06/20/19 04:46 06/20/19 07:01 06/20/19 07:01 06/20/19 07:01 - Laboratory Result Diagrams: 06/20/19 05:00 06/20/19 05:00 Laboratory results interpreted by me: 06/20/19 06/20/19 06/20/19 05:00 05:00 10:30 WBC 14.0 H Absolute Neutrophils 10.2 H Sodium 136.5 L Potassium 2.8 L* Chloride 89 L Carbon Dioxide 33 H Glucose 139 H Total Bilirubin 2.7 H AST 138 H Creatine Kinase 2619 H 2855 H Albumin 5.1 H Salicylates < 1.0 L Acetaminophen < 10 L
--- NOTE | 2019-06-20 12:18 | PSYCHOLOGICAL NOTE ---
Psych Note - Psych Note Date seen by psych provider: 06/20/19 Time seen by psych provider: 08:819 Psych Note: Reason for Consult: Detox Consent permissions: Patient's mother This 33-year-old male patient comes emergency room complaining of 4 days history of nausea and vomiting due to narcotic withdrawal. Patient reports that after his father , almost 1 year ago, he started misusing his pain medications he received after surgery. He states that in November he no longer received any prescriptions so started obtaining them illegally on the street. Patient requests assistance in detox. Patient denies any thoughts of wanting to harm himself or others. He identifies being anxious and wanting to leave, contributing this to lifelong anxiety disorder. Clinician discussed concern that the patient wanted to leave AMA. Patient is currently being served for medical reasons. Patient denies wanting to leave AMA to get high, stating it is because of his anxiety; Patient agrees to stay to be treated medically. Patient is alert and orientated to person, place, time and circumstance. Mood is anxious with congruent affect. Patient discloses he is currently going through withdrawals from opiates. Patient denies suicidal and homicidal ideati on. Delusions are absent behaviors congruent with an intact reality based presentation i.e. organized and linear thought process. Eye contact is fair. Conversational speech is within normal rate, tone and prosody. Intellectual abilities appear to be within the average range. Attention and concentration is fair. Insight, judgment, impulse control is fair. Clinician spoke with patient's mother who reports that patient has been having difficulty adjusting since his father approximately 1 year ago. She states that he has a history of severe anxiety. She continued to disclose that the patient tends to self medicate with marijuana however he is "highly allergic" to the marijuana and results in hyperemesis. She states that he can vomit for days after smoking marijuana. She continued to state that she is the one that brought him to the hospital she was unaware that he was misusing his pain medications in addition to the marijuana. She denies the patient has any official mental health diagnosis but feels very strongly that he has both severe anxiety and mild depression. She reports that it can be difficult trying to get help for anxiety because most anxiety medications are narcotics however she feels that there has to be some other type of medication that can assist with anxiety that is not a narcotic. Withdrawal with use disorder mild, opiate, per history provided by patient Cannabis use disorder; mild per history Unspecified anxiety disorder per history provided by patient and patient's mother Uncomplicated bereavement Medication recommendations per [facility]'s contracted psychiatrist Dr. Kelly MCDONALD are as follows Buspar 5mg twice daily Haldol 5mg IM once Impression/Plan: Patient is cleared from acute psychiatric services. Patient denies thoughts of wanting to harm himself or others and is not demonstrating any behaviors of responding to internal stimuli. Patient arrived to [facility] requesting assistance for detox from opiates. Patient has been provided local resource list of area providers including mobile crisis contact information for continued assistance in substance abuse treatment. Patient and patient's mother identifies significant difficulties with severe anxiety; medication recommendations have been provided. Patient is highly encouraged to follow-up with outpatient mental health services for continued treatment. Dr. Berry was consulted to care management of this patient; attending physicians in agreement with recommendations and disposition.
[2019-06-20] MEDS ORDERED: POTASSIUM CHLORIDE 10 MEQ CAPSULE.ER PO ONE (15:42)
[2019-06-20 16:01] VITALS: BP 149/99
== END 2019-06-20 16:02 ==
LOC: ER 04:43
DX: F11.23 Opioid dependence with withdrawal (principal); F19.10 Other psychoactive substance abuse, uncomplicated; F12.10 Cannabis abuse, uncomplicated; E87.6 Hypokalemia; M62.82 Rhabdomyolysis; G43.A0 Cyclical vomiting, in migraine, not intractable; F17.210 Nicotine dependence, cigarettes, uncomplicated; I10 Essential (primary) hypertension
CPT/HCPCS: 93005; 99285; 96361; 96374; 36415; 80307 ×4; 82550; 83735; 85025; 80053; 81001; 93010; J2405; J7030; J7120; J3490

== ENCOUNTER 2019-10-01 10:34 | Emergency (ER) | payer BC ==
[2019-10-01] MEDS ORDERED: AMMONIA INHALANTS 10 AMPUL/BOX IH ONE (10:36)
[2019-10-01] MEDS ORDERED: NORMAL SALINE 1000 ML 2,000 ML IV ONE (10:42)
[2019-10-01] MEDS ORDERED: PANTOPRAZOLE SODIUM 40 MG VIAL IV ONE (10:43)
[2019-10-01] MEDS ORDERED: ONDANSETRON HCL INJ/PF 4 MG/2 ML SDV IV ONE (10:43)
--- NOTE | 2019-10-01 10:54 | ER Document Report ---
ED Substance Abuse / Acc. OD - General Stated Complaint: WEAKNESS Time Seen by Provider: 10/01/19 10:41 Cannot obtain history due to: Uncooperative Notes: Mr. Garcia is a 34 yo m w/ PMH opioid substance abuse brought in by grandfather for altered mental status and vomiting. Patient unable to provide any history secondary to noncooperative nature in the ED and refusing to speak although he does say he has no medical problems however that is it. Per grandfather who brought the patient in, he has been up and sick since approximately 3 AM vomiting both food and gastric contents in addition to some blood. Upon arrival to the trauma room, the patient has vomitus on his chin and shirt. Patient does endorse using oxycodone but is unwilling to provide any additional history. TRAVEL OUTSIDE OF THE [place] IN LAST 30 DAYS: No - Related Data Allergies/Adverse Reactions: No Known Allergies Allergy (Verified 12/03/18 10:20) Past Medical History - General Information source: Patient, Relative - grandfather - Social History Smoking Status: Smoker,Current Status Unk Drug Abuse: Prescription drugs - oxycodone Family History: Reviewed & Not Pertinent - Past Medical History Cardiac Medical History: Reports: Hx Hypertension - Blood pressures been elevated on previous emergency room visits. Denies: Hx Coronary Artery Disease, Hx Heart Attack Pulmonary Medical History: Denies: Hx Asthma, Hx Bronchitis, Hx COPD, Hx Pneumonia Neurological Medical History: Denies: Hx Cerebrovascular Accident, Hx Seizures Renal/ Medical History: Denies: Hx Peritoneal Dialysis Musculoskeletal Medical History: Denies Hx Arthritis Psychiatric Medical History: Reports: Hx Anxiety Past Surgical History: Reports: Hx Cholecystectomy, Hx Orthopedic Surgery - L knee medial meniscus surgery 12/07/17, right achilles rupture in March 2018 - Immunizations Hx Diphtheria, Pertussis, Tetanus Vaccination: Yes Review of Systems - Review of Systems -: Yes ROS unobtainable due to patient's medical condition Physical Exam - Vital signs Vitals: Resp BP Pulse Ox 30 H 178/112 H 100 10/01/19 10:35 10/01/19 10:35 10/01/19 10:35 Interpretation: Hypertensive, Tachypneic - General General appearance: Alert, Lethargic In distress: Mild Notes: Patient is actively retching - HEENT Head: Normocephalic, Atraumatic Eyes: Normal Pupils: PERRL Mouth/Lips: Normal, Other - Vomitus around the mouth and chin. - Respiratory Respiratory status: No respiratory distress Chest status: Nontender Breath sounds: Normal Chest palpation: Normal - Cardiovascular Rhythm: Regular Heart sounds: Normal auscultation Murmur: No - Abdominal Inspection: Normal Distension: No distension Bowel sounds: Normal Tenderness: Nontender Organomegaly: No organomegaly - Back Back: Normal, Nontender - Extremities General upper extremity: Normal inspection, Nontender, Normal color, Normal ROM, Normal temperature General lower extremity: Normal inspection, Nontender, Normal color, Normal ROM, Normal temperature, Normal weight bearing. No: Jacob's sign - Neurological Neuro grossly intact: Yes Cognition: Normal [place] Coma Scale Eye Opening: To Voice [place] Coma Scale Verbal: Confused [place] Coma Scale Motor: Localizes to Pain [place] Coma Scale Total: 12 Speech: Normal Motor strength normal: LUE, RUE, LLE, RLE - Psychological Associated symptoms: Agitated - Skin Skin Temperature: Warm Skin Moisture: Diaphoretic Skin Color: Pale Course - Re-evaluation Re-evalutation: Patient is ill-appearing but nontoxic. Initial vitals notable for mildly elevated blood pressure and tachypnea. Patient was responsive to both painful stimuli with sternal rub as well as loud voice however he would only moan and oc casionally say 1-2 words. An Monia capsule was ruptured just anterior to his nostrils and the patient became significantly more alert. Differential diagnosis includes upper GI bleed, cannabinoid hyperemesis syndrome, alcohol withdrawal, alcohol intoxication, polysubstance abuse, dehydration 10/01/19 11:42 Patient significantly more alert now. States he has been abusing oxycodone, Xanax as well as marijuana. He states that he feels that he is addicted to marijuana and is withdrawing from that. Patient continues to actively retching and is producing a small amount of pink-tinged sputum in the vomit bag. 10/01/19 11:43 Patient difficult to redirect, keeps trying to get out of bed in order to urinate. Multiple nurses called to the bedside for assistance. Patient provided with bedpan as well as urinal. Patient given Haldol for ongoing retching to help calm him down. 10/01/19 13:15 Patient has not had any episodes of retching or vomiting since being provided with Haldol. His significant other is at the bedside and states this will continue to happen at home if the patient is not admitted. I explained that there is nothing further that could be done as the patient continues to using marijuana and this is likely hyperemesis opioid syndrome. Patient's significant other threatens to bring patient back later on tonight when he continues to vomit. I explained that the ED is always open and would be happy to take care of him for his ongoing vomiting however this will continue to happen if he continues to smoke. 10/01/19 16:56 His mom is at the bedside. States that the patient has had increased stress in his life recently with his father passing away in the past 2 months. She states that he is significantly anxious and uses marijuana on effort to calm himself down. Turns into a vicious cycle and then he becomes acutely ill with the cyclical vomiting syndrome. 10/01/19 17:00 Patient recommended stop using marijuana. Will be discharged with hydroxyzine for anxiety as well as Zofran ODT's for nausea. Patient given return precautions and recommended to start with a clear liquid diet and then slowly progressed to bland foods. - Vital Signs Vital signs: Temp Pulse Resp BP Pulse Ox 98.0 F 71 19 129/89 H 100 10/01/19 17:00 10/01/19 10:53 10/01/19 17:00 10/01/19 17:00 10/01/19 17:00 - Laboratory Result Diagrams: 10/01/19 10:40 10/01/19 10:40 Laboratory results interpreted by me: 10/01/19 10/01/19 10/01/19 10:38 10:40 10:40 WBC Absolute Neuts (auto) Glucose 178 H POC Glucose 164 H Lactic Acid 3.6 H Calcium 10.9 H Ammonia Total Protein 8.4 H Albumin 5.2 H Salicylates < 1.0 L Acetaminophen < 10 L 10/01/19 10/01/19 10/01/19 10:40 11:09 15:18 WBC 11.7 H Absolute Neuts (auto) 8.9 H Glucose POC Glucose Lactic Acid 2.8 H Calcium Ammonia < 8.7 L Total Protein Albumin Salicylates Acetaminophen - EKG Interpretation by Ms EKG shows normal: Sinus rhythm, Ashley, ST-T Waves Rate: Normal Rhythm: NSR Discharge - Discharge Clinical Impression: Cannabinoid hyperemesis syndrome, Polysubstance abuse, Cyclical vomiting, Lactic acid acidosis Condition: Good Disposition: HOME, SELF-CARE Instructions: Antinausea Medication ([facility]), Vomiting ([facility]) Additional Instructions: I would highly recommend that you stop smoking marijuana. This is the und erlying cause of all of your medical problems including the cyclical vomiting that continues to occur. Follow-up with a psychiatrist if you feel increased anxiety and stress in your life. I would also recommend that you stick to a liquid diet for the next day or 2 with clear liquids such as water, Gatorade. You can then slowly increase to soft solids and bland foods. Prescriptions: Hydroxyzine HCl [Atarax 10 mg Tablet] 10 mg PO TID PRN #30 tablet PRN Reason: Anxiety Ondansetron [Zofran Odt 4 mg Tablet] 1 - 2 tab PO TID #30 tab.rapdis
[2019-10-01] MEDS ORDERED: METOCLOPRAMIDE HCL INJ/PF 10 MG/2 ML SDV IV ONE (11:06)
[2019-10-01 11:22] LABS: INTERNATIONAL RATION (INR) 0.95; PROTHROMBIN TIME 12.6 SEC (11.4-15.4)
[2019-10-01 11:23] LABS: PARTIAL THROMBOPLASTIN TIME 23.5 SEC (23.5-35.8)
[2019-10-01] MEDS ORDERED: HALOPERIDOL LACTATE INJ 5 MG/1 ML VIAL IM ONE ×2 (11:38→13:26)
[2019-10-01 11:40] LABS: ALBUMIN 5.2 g/dL (3.5-5.0); ALKALINE PHOSPHATASE 72 U/L (38-126); ANION GAP 16 (5-19); ASPARTATE AMINO TRANSFERASE 24 U/L (17-59); BILIRUBIN,DIRECT 0.2 mg/dL (0.0-0.4); BILIRUBIN,TOTAL 0.8 mg/dL (0.2-1.3); BLOOD UREA NITROGEN 12 mg/dL (7-20); CALCIUM 10.9 mg/dL (8.4-10.2); CARBON DIOXIDE 22 mmol/L (22-30); CHLORIDE 105 mmol/L (98-107); CREATINE KINASE 109 U/L (55-170); GLUCOSE 178 mg/dL (75-110); POTASSIUM 4.5 mmol/L (3.6-5.0); TOTAL PROTEIN 8.4 g/dL (6.3-8.2)
[2019-10-01 11:42] LABS: ACETAMINOPHEN < 10 ug/mL (10-30); ALCOHOL < 10 mg/dL (NONE DETECTED); SALICYLATE < 1.0 mg/dL (2.0-20.0)
[2019-10-01] MEDS ORDERED: DIPHENHYDRAMINE HCL 50 MG/ML VIAL IV ONE (11:46)
[2019-10-01 11:49] LABS: CREATINE KINASE MB 1.59 ng/mL (<4.55)
[2019-10-01 11:50] LABS: TROPONIN I < 0.012 ng/mL
--- NOTE | 2019-10-01 12:02 | RADIOLOGY REPORT (SQ) ---
EXAM DESCRIPTION: CHEST SINGLE VIEW COMPLETED DATE/TIME: 10/01/2019 11:47 am REASON FOR STUDY: ams, vomiting blood COMPARISON: None. EXAM PARAMETERS: NUMBER OF VIEWS: One view. TECHNIQUE: Single frontal radiographic view of the chest acquired. RADIATION DOSE: NA LIMITATIONS: None. FINDINGS: LUNGS AND PLEURA: No opacities, masses or pneumothorax. No pleural effusion. MEDIASTINUM AND HILAR STRUCTURES: No masses. Contour normal. HEART AND VASCULAR STRUCTURES: Heart normal in size. Normal vasculature. BONES: No acute findings. HARDWARE: Prior cholecystectomy. OTHER: No other significant finding. IMPRESSION: NO ACUTE RADIOGRAPHIC FINDING IN THE CHEST. TECHNICAL DOCUMENTATION: JOB ID: [id number] [employer]- All Rights Reserved Reading location - IP/workstation name: [email or web address]
--- NOTE | 2019-10-01 12:03 | RADIOLOGY REPORT (SQ) ---
EXAM DESCRIPTION: CT HEAD WITHOUT COMPLETED DATE/TIME: 10/01/2019 11:45 am REASON FOR STUDY: ams COMPARISON: None. TECHNIQUE: Axial images acquired through the brain without intravenous contrast. Images reviewed wi th bone, brain and subdural windows. Additional sagittal and coronal reconstructions were generated. Images stored on PACS. All CT scanners at this facility use dose modulation, iterative reconstruction, and/or weight based d osing when appropriate to reduce radiation dose to as low as reasonably achievable (ALARA). [facility]: Dose Right [facility]: CareDose [facility]: Dose Right [facility]: Teradose 4D [facility]: Giferent RADIATION DOSE: CT Rad equipment meets quality standard of care and radiation dose reduction techniq ues were employed. CTDIvol: 53.2 mGy. DLP: 1070 mGy-cm. mGy. LIMITATIONS: None. FINDINGS: VENTRICLES: Normal size and contour. CEREBRUM: No masses. No hemorrhage. No midline shift. No evidence for acute infarction. Normal gra y/white matter differentiation. No areas of low density in the white matter. CEREBELLUM: No masses. No hemorrhage. No alteration of density. No evidence for acute infarction. EXTRAAXIAL SPACES: No fluid collections. No masses. ORBITS AND GLOBE: No intra- or extraconal masses. Normal contour of globe without masses. CALVARIUM: No fracture. PARANASAL SINUSES: Chronic left maxillary sinus disease. SOFT TISSUES: No mass or hematoma. OTHER: No other significant finding. IMPRESSION: NORMAL BRAIN CT WITHOUT CONTRAST. EVIDENCE OF ACUTE STROKE: NO. COMMENT: Quality ID # [id number]: Final reports with documentation of one or more dose reduction techniques (e.g., Automated exposure control, adjustment of the mA and/or kV according to patient size, use of iterative reconstruction technique) TECHNICAL DOCUMENTATION: JOB ID: [id number] [employer]- All Rights Reserved Reading location - IP/workstation name: [email or web address]
--- NOTE | 2019-10-01 12:03 | RADIOLOGY REPORT (SQ) ---
EXAM DESCRIPTION: KUB/ABDOMEN (SINGLE VIEW) COMPLETED DATE/TIME: 10/01/2019 11:47 am REASON FOR STUDY: ams, vomiting blood COMPARISON: None. NUMBER OF VIEWS: One view. TECHNIQUE: Supine radiographic image of the abdomen acquired. LIMITATIONS: None. FINDINGS: BOWEL GAS PATTERN: Normal bowel gas pattern. No dilated loops. CALCIFICATIONS: No suspicious calcifications. SOFT TISSUES: No gross mass or suggestion of organomegaly. HARDWARE: Prior cholecystectomy. BONES: No acute fracture. No worrisome bone lesions. OTHER: No other significant finding. IMPRESSION: NO RADIOGRAPHIC EVIDENCE FOR ACUTE ABDOMINAL DISEASE. TECHNICAL DOCUMENTATION: JOB ID: [id number] [employer]- All Rights Reserved Reading location - IP/workstation name: [email or web address]
[2019-10-01] MEDS ORDERED: NORMAL SALINE 1000 ML 1,000 ML IV ONE (13:19)
[2019-10-01] MEDS ORDERED: HYDROXYZINE HCL 10 MG TABLET PO ONE (13:26)
--- NOTE | 2019-10-01 13:36 | EKG REPORT ---
SEVERITY:- NORMAL ECG - SINUS RHYTHM : Confirmed by: Isma Aquino MD 01-Oct-2019 13:35:48
[2019-10-01 13:37] LABS: ABSOLUTE BASOPHILS # (AUTO) 0.1 10^3/uL (0.0-0.2); ABSOLUTE LYMPHOCYTES (AUTO) 2.2 10^3/uL (0.5-4.7); ABSOLUTE MONOCYTES (AUTO) 0.5 10^3/uL (0.1-1.4); ABSOLUTE NEUT (AUTO) 8.9 10^3/uL (1.7-8.2); BASOPHILS % (AUTO) 0.6 % (0-2); EOSINOPHILS % (AUTO) 0.1 % (0-6); HEMATOCRIT 48.2 % (37.9-51.0); HEMOGLOBIN 16.6 g/dL (13.5-17.0); LYMPHOCYTES % (AUTO) 18.4 % (13-45); MEAN CORPUSCULAR HEMOGLOBIN 31.1 pg (27.0-33.4); MEAN CORPUSCULAR HGB CONC 34.5 g/dL (32.0-36.0); MEAN CORPUSCULAR VOLUME 90 fl (80-97); MONOCYTES % (AUTO) 4.6 % (3-13); PLATELET COUNT 328 10^3/uL (150-450); RED BLOOD COUNT 5.34 10^6/uL (4.35-5.55); RED CELL DISTRIBUTION WIDTH 13.1 % (11.5-14.0); SEGMENTED NEUTROPHILS % (AUTO) 76.3 % (42-78); TOTAL CELLS COUNTED % (AUTO) 100 %; WHITE BLOOD COUNT 11.7 10^3/uL (4.0-10.5)
[2019-10-01 15:27] LABS: APPEARANCE,URINE CLEAR; BILIRUBIN,URINE NEGATIVE (NEGATIVE); COLOR,URINE YELLOW; GLUCOSE, URINE NEGATIVE (NEGATIVE); KETONES,URINE NEGATIVE (NEGATIVE); LEUKOCYTE ESTERASE,URINE NEGATIVE (NEGATIVE); NITRITE,URINE NEGATIVE (NEGATIVE); PROTEIN,URINE NEGATIVE (NEGATIVE); URINE SPECIFIC GRAVITY 1.015; UROBILINOGEN,URINE NEGATIVE mg/dL (<2.0)
[2019-10-01 15:44] LABS: URINE AMPHETAMINES SCREEN NEGATIVE; URINE BARBITURATES SCREEN NEGATIVE; URINE COCAINE SCREEN NEGATIVE; URINE METHADONE SCREEN NEGATIVE; URINE PHENCYCLIDINE SCREEN NEGATIVE
[2019-10-01 15:46] LABS: URINE BENZODIAZEPINES SCREEN UNCONFIRMED POSITIVE; URINE MARIJUANA (THC) SCREEN UNCONFIRMED POSITIVE
[2019-10-01 17:30] VITALS: BP 129/89
== END 2019-10-01 17:30 | disposition home or self-care (01) ==
LOC: ER 10:34
DX: F12.188 Cannabis abuse with other cannabis-induced disorder (principal); K92.0 Hematemesis; F11.10 Opioid abuse, uncomplicated; F13.10 Sedative, hypnotic or anxiolytic abuse, uncomplicated; E87.2 Acidosis; R61 Generalized hyperhidrosis; R06.82 Tachypnea, not elsewhere classified; R23.1 Pallor; F41.9 Anxiety disorder, unspecified; I10 Essential (primary) hypertension; Z63.4 Disappearance and death of family member
CPT/HCPCS: 93005; 36415; 87040; 82553; 82962; 80307 ×4; 82140; 82550; 83605; 83690; 85025; 85610; 85730; 80053; 81001; 84484; 71045; 74018; 70450; 93010; J1200; J1630; J2765; C9113; J2405; J7030; 96361; 96372; 96374; 96375; 99285

== ENCOUNTER 2019-10-03 02:33 | Emergency (ER) | payer BC ==
[2019-10-03] MEDS ORDERED: ONDANSETRON HCL INJ/PF 4 MG/2 ML SDV ONE (02:48)
[2019-10-03] MEDS ORDERED: ONDANSETRON HCL INJ/PF 4 MG/2 ML SDV IV ONE (02:51)
[2019-10-03 03:10] LABS: ABSOLUTE BASOPHILS # (AUTO) 0.1 10^3/uL (0.0-0.2); ABSOLUTE EOSINOPHILS # (AUTO) 0.1 10^3/uL (0.0-0.6); ABSOLUTE LYMPHOCYTES (AUTO) 1.9 10^3/uL (0.5-4.7); ABSOLUTE MONOCYTES (AUTO) 0.8 10^3/uL (0.1-1.4); ABSOLUTE NEUT (AUTO) 13.1 10^3/uL (1.7-8.2); BASOPHILS % (AUTO) 0.6 % (0-2); EOSINOPHILS % (AUTO) 0.4 % (0-6); HEMOGLOBIN 15.6 g/dL (13.5-17.0); LYMPHOCYTES % (AUTO) 12.1 % (13-45); MEAN CORPUSCULAR HEMOGLOBIN 31.4 pg (27.0-33.4); MEAN CORPUSCULAR HGB CONC 34.8 g/dL (32.0-36.0); MEAN CORPUSCULAR VOLUME 90 fl (80-97); MONOCYTES % (AUTO) 5.3 % (3-13); PLATELET COUNT 287 10^3/uL (150-450); RED BLOOD COUNT 4.98 10^6/uL (4.35-5.55); RED CELL DISTRIBUTION WIDTH 12.8 % (11.5-14.0); SEGMENTED NEUTROPHILS % (AUTO) 81.6 % (42-78); TOTAL CELLS COUNTED % (AUTO) 100 %; WHITE BLOOD COUNT 16.1 10^3/uL (4.0-10.5)
[2019-10-03 03:29] LABS: ALBUMIN 5.2 g/dL (3.5-5.0); ALKALINE PHOSPHATASE 64 U/L (38-126); ANION GAP 17 (5-19); ASPARTATE AMINO TRANSFERASE 68 U/L (17-59); BILIRUBIN,DIRECT 0.1 mg/dL (0.0-0.4); BILIRUBIN,TOTAL 1.7 mg/dL (0.2-1.3); BLOOD UREA NITROGEN 18 mg/dL (7-20); CALCIUM 10.3 mg/dL (8.4-10.2); CARBON DIOXIDE 27 mmol/L (22-30); CHLORIDE 94 mmol/L (98-107); GLUCOSE 144 mg/dL (75-110); POTASSIUM 3.1 mmol/L (3.6-5.0); TOTAL PROTEIN 8.2 g/dL (6.3-8.2)
[2019-10-03] MEDS ORDERED: POTASSIUM CHLORIDE 10 MEQ CAPSULE.ER PO ONE (04:24)
[2019-10-03] MEDS ORDERED: RINGERS SOLUTION,LACTATED 1,000 ML IV ONE (04:24)
[2019-10-03 04:53] LABS: APPEARANCE,URINE CLEAR; BILIRUBIN,URINE NEGATIVE (NEGATIVE); COLOR,URINE YELLOW; GLUCOSE, URINE NEGATIVE (NEGATIVE); KETONES,URINE NEGATIVE (NEGATIVE); LEUKOCYTE ESTERASE,URINE NEGATIVE (NEGATIVE); NITRITE,URINE NEGATIVE (NEGATIVE); PROTEIN,URINE 30 mg/dL (NEGATIVE); URINE SPECIFIC GRAVITY 1.027
[2019-10-03] MEDS ORDERED: CLONIDINE 0.1 MG/24 HR PATCH.TDWK TD ONE (05:12)
[2019-10-03] MEDS ORDERED: ONDANSETRON ODT 4 MG TAB (6 TAB/ER DISP) PO PRN (05:12)
--- NOTE | 2019-10-03 05:21 | ER Document Report ---
ED General - General Chief Complaint: Medical Clearance Stated Complaint: VOMITING/DETOX Time Seen by Provider: 10/03/19 03:15 Notes: 34-year-old male presents the emergency department complaining of nausea and vomiting since Monday associated with mild diffuse abdominal pain. Denies any diarrhea. Says that he feels generally weak. Denies any fevers. Also complains of pain to his right foot/ankle that he states has been ongoing for the past year since he had surgery on his right Achilles tendon. Patient states that he thinks he is in withdrawal, states that he uses Percocet and tramadol on a regular basis, has not had any in approximately 1 week. Also states that he uses marijuana, has not used it in 1 day. Patient initially requests help and wants to be medically cleared to be able to go to detox but then states he just wants to go home. Denies any suicidal or homicidal ideation. Patient has a history of pancreatitis, states this feels somewhat similar. Has had a cholecystectomy over 8 years ago. TRAVEL OUTSIDE OF THE [place] IN LAST 30 DAYS: No - Related Data Allergies/Adverse Reactions: No Known Allergies Allergy (Verified 12/03/18 10:20) Home Medications: pt vomiting Past Medical History - General Information source: Patient - Social History Smoking Status: Current Every Day Smoker Chew tobacco use (# tins/day): No Frequency of alcohol use: None Drug Abuse: Marijuana, Prescription drugs Family History: Reviewed & Not Pertinent Patient has suicidal ideation: No Patient has homicidal ideation: No - Past Medical History Cardiac Medical History: Reports: Hx Hypertension - Blood pressures been elevated on previous emergency room visits. Denies: Hx Coronary Artery Disease, Hx Heart Attack Pulmonary Medical History: Denies: Hx Asthma, Hx Bronchitis, Hx COPD, Hx Pneumonia Neurological Medical History: Denies: Hx Cerebrovascular Accident, Hx Seizures Renal/ Medical History: Denies: Hx Peritoneal Dialysis Musculoskeletal Medical History: Denies Hx Arthritis Psychiatric Medical History: Reports: Hx Anxiety Past Surgical History: Reports: Hx Cholecystectomy, Hx Orthopedic Surgery - L knee medial meniscus surgery 12/07/17, right achilles rupture in March 2018 - Immunizations Hx Diphtheria, Pertussis, Tetanus Vaccination: Yes Review of Systems - Review of Systems Constitutional: Malaise, Weakness EENT: No symptoms reported Gastrointestinal: See HPI Genitourinary: No symptoms reported Musculoskeletal: See HPI -: Yes All other systems reviewed and negative Physical Exam - Vital signs Vitals: Temp Pulse Resp BP Pulse Ox 98.6 F 66 16 137/100 H 98 10/03/19 02:40 10/03/19 02:40 10/03/19 02:40 10/03/19 02:40 10/03/19 02:40 Interpretation: Normal - Notes Notes: GENERAL: Alert, interacts well. Initially confrontational but later much more cooperative. Initially laying in bed, later pacing but able to calm down and sit down. HEAD: Normocephalic, atraumatic EYES: Pupils equal, round and reactive to light, extraocular movements intact. ENT: Oral mucosa moist, tongue midline. NECK: Full range of motion, supple, trachea midline. LUNGS: Clear to auscultation bilaterally, no wheezes, rales or rhonchi, no respiratory distress. HEART: Regular rate and rhythm, no murmurs, gallops, rubs. ABDOMEN: Soft, nontender, nondistended, bowel sounds present in all 4 quadrants. EXTREMITIES: Moves all 4 extremities spontaneously, no edema, radial and dorsalis pedis pulses 2/4 bilaterally. No cyanosis. NEUROLOGICAL: Alert and oriented x3, normal speech. PSYCH: Occasionally tearful, occasionally anxious. SKIN: Warm, Dry, normal turgor. Course - Re-evaluation Re-evalutation: 10/03/19 05:24 CBC shows leukocytosis at 16.1, CMP shows low potassium at 3.1, patient is being given potassium by mouth replete this, magnesium was normal, total bilirubin was elevated at 1.7 but direct bilirubin is normal at 0.1, patient does have elevated lipase at 453.4, this is only minimally elevated, patient is status post cholecystectomy since 8 years ago. Sincerely doubt retained stone this far out. Ultrasound was canceled. Suspect combination of withdrawals, cyclic vomiting syndrome as he is used marijuana relatively recently and a mild pancreatitis. Patient was offered IV fluids, clonidine patch, Toradol and Bentyl as well as some other medications help control his symptoms. Patient was also offered to be medically cleared and stay until his symptoms were resolved and then assisted in finding detox resources. At this time patient states never mind he does not want to stay in the hospital and he would like to go home. Patient will still be given symptomatic treatment using clonidine for mild w ithdrawals, he can remove the patch whenever he wants, Zofran dispense pack to go and Toradol and Bentyl for his symptoms. - Vital Signs Vital signs: Temp Pulse Resp BP Pulse Ox 98.6 F 66 16 137/100 H 98 10/03/19 02:40 10/03/19 02:40 10/03/19 02:40 10/03/19 02:40 10/03/19 02:40 - Laboratory Result Diagrams: 10/03/19 03:00 10/03/19 03:00 Laboratory results interpreted by me: 10/03/19 10/03/19 10/03/19 03:00 03:00 03:00 WBC 16.1 H Lymph % (Auto) 12.1 L Absolute Neuts (auto) 13.1 H Seg Neutrophils % 81.6 H Potassium 3.1 L Chloride 94 L Glucose 144 H Calcium 10.3 H Total Bilirubin 1.7 H AST 68 H Albumin 5.2 H Lipase 453.4 H Urine Protein Urine Urobilinogen 10/03/19 04:15 WBC Lymph % (Auto) Absolute Neuts (auto) Seg Neutrophils % Potassium Chloride Glucose Calcium Total Bilirubin AST Albumin Lipase Urine Protein 30 H Urine Urobilinogen 4.0 H Discharge - Discharge Clinical Impression: Intractable nausea and vomiting, Hypokalemia, Polysubstance abuse, Cannabinoid hyperemesis syndrome Pancreatitis Qualifiers: Chronicity: chronic Pancreatitis type: unspecified pancreatitis type Qualified Code(s): K86.1 - Other chronic pancreatitis Condition: Stable Disposition: HOME, SELF-CARE Additional Instructions: Pancreatitis Pancreatitis is an inflammation of the pancreas, an organ at the back of your abdomen. The pancreas produces insulin and enzymes that digest your food. Pancreatitis can be caused by gallstones in the bile duct, by alcohol or viruses, or by excess fat or calcium in the blood stream. Occasionally, pancreatitis occurs when a stomach ulcer quispe through into the pancreas. We try to find the cause of pancreatitis, but some tests can't be done until the pancreas heals. The usual symptoms of pancreatitis are pain in the pit of the stomach that goes straight through to the back, vomiting, and low-grade fever. Severe cases require hospital admission, but many patients with mild pancreatitis do well at home. You will probably need medicine for pain and for vomiting. Sometimes we prescribe medicine to decrease stomach acid secretion and to decrease flow of pancreatic juices. Start with a diet of clear liquids (soda pop, juices). When the pain is decreasing, you can add some simple starches (potato, toast, applesauce). Avoid proteins and fats until you are completely painfree. When you're better, your doctor may suggest treatment to prevent future pancreatitis (such as gallbladder removal). Avoid alcohol forever. Get i mmediate treatment for any future episodes. Contact your doctor at once or return here if you have increasing pain, shortness of breath, general swelling, increasing size of the abdomen, continued vomiting, muscle spasms, or other new symptoms.
[2019-10-03] MEDS ORDERED: DICYCLOMINE HCL 20 MG TABLET PO ONE (05:24)
[2019-10-03] MEDS ORDERED: KETOROLAC TROMETHAMINE 60 MG/2 ML SDV IV ONE (05:24)
[2019-10-03 05:36] VITALS: BP 137/81
== END 2019-10-03 05:53 | disposition home or self-care (01) ==
LOC: ER 02:33
DX: F12.188 Cannabis abuse with other cannabis-induced disorder (principal); R11.2 Nausea with vomiting, unspecified; F19.10 Other psychoactive substance abuse, uncomplicated; K86.1 Other chronic pancreatitis; E87.6 Hypokalemia; R10.84 Generalized abdominal pain; R53.1 Weakness; M79.671 Pain in right foot; M25.571 Pain in right ankle and joints of right foot; Z98.890 Other specified postprocedural states; F17.200 Nicotine dependence, unspecified, uncomplicated; I10 Essential (primary) hypertension; R53.81 Other malaise; Z90.49 Acquired absence of other specified parts of digestive tract
CPT/HCPCS: 36415; 83690; 83735; 85025; 80053; 81001; J3490 ×2; J1885; J2405; 96374; 96375; 99283